=== PATIENT | female | born 1990 | race Asian ===

== ENCOUNTER 2017-03-27 12:30 | Emergency (ER) | payer MEDICAID ==
[~2017-03-27] VITALS: Ht 157.5 cm; Wt 60.8 kg
[2017-03-27 14:41] VITALS: BP 105/55
[2017-03-27] MEDS ORDERED: AMOX500C PO (15:07)
--- NOTE | 2017-03-27 15:07 | PHYS DOC ---
Past Medical History Past Medical History: Hypothyroid Past Surgical History: Other Additional Past Surgical Histo: R hand Alcohol Use: None Drug Use: None Adult General Chief Complaint Chief Complaint: SORE THROAT HPI HPI Patient is a 26 year old female presents to the emergency department with an upper respiratory infection with fevers at night this is been occurring for the last 4 days. Parent is breast-feeding. She is here with her 2 younger children with upper respiratory infections as well. She states that she's been having a sore throat. Denies any nausea vomiting diarrhea or abdominal pain. Review of Systems Review of Systems Constitutional: Denies fever or chills [] Eyes: Denies change in visual acuity, redness, or eye pain [] HENT: Denies nasal congestion C/o sore throat [] Respiratory: Denies cough or shortness of breath [] Cardiovascular: No additional information not addressed in HPI [] GI: Denies abdominal pain, nausea, vomiting, bloody stools or diarrhea [] : Denies dysuria or hematuria [] Musculoskeletal: Denies back pain or joint pain [] Integument: Denies rash or skin lesions [] Neurologic: Denies headache, focal weakness or sensory changes [] Endocrine: Denies polyuria or polydipsia [] Allergies Allergies Allergies Coded Allergies Type Severity Reaction Last Updated Verified No Known Drug Allergies 03/27/17 No Physical Exam Physical Exam Constitutional: Well developed, well nourished, no acute distress, non-toxic appearance. [] HENT: Normocephalic, atraumatic, bilateral external ears normal, oropharynx moist, no oral exudates, nose normal. Bilateral tympanic membranes appear to be normal. Throat appears to be without redness erythematous exudate. No anterior cervical adenopathy noted. Eyes: PERRLA, EOMI, conjunctiva normal, no discharge. [] Neck: Normal range of motion, no tenderness, supple, no stridor. [] Cardiovascular:Heart rate regular rhythm, no murmur [] Lungs & Thorax: Bilateral breath sounds clear to auscultation [][] Skin: Warm, dry, no erythema, no rash. [] Back: No tenderness Extremities: No tenderness, no cyanosis, no clubbing, ROM intact, no edema. [] Neurologic: Alert and oriented X 3, normal motor function, normal sensory function, no focal deficits noted. [] Psychologic: Affect normal, judgement normal, mood normal. [] Current Patient Data Vital Signs Vital Signs Date Time Temp Pulse Resp B/P (MAP) Pulse Ox O2 Delivery O2 Flow Rate FiO2 03/27/17 14:41 98.0 82 18 100 Room Air 98.0 EKG EKG [] Radiology/Procedures Radiology/Procedures [] Course & Med Decision Making Course & Med Decision Making Pertinent Labs and Imaging studies reviewed. (See chart for details) Spoke with grader patrol regards to drinking plenty of fluids such as water, Gatorade, propel, Powerade. Patient will be placed on amoxicillin for upper respiratory infection. Recommended plenty of rest. Signs symptoms to return back to emergency department as been provided. Patient agrees with discharge instructions, treatment regimens and follow-up recommendations. [] Dragon Disclaimer Dragon Disclaimer This electronic medical record was generated, in whole or in part, using a voice recognition dictation system. Departure Departure Impression: Primary Impression: Upper respiratory infection Disposition: HOME, SELF-CARE Condition: STABLE Referrals: UNKNOWN PCP NAME (PCP) Patient Instructions: Upper Respiratory Infection, Adult, [id number] Additional Instructions: Drink plenty of fluids. Tylenol or ibuprofen for fever chills or generalized body aches and discomfort. Medication as prescribed. Follow-up primary care physician next 3-5 days. Return back to emergency prior signs symptoms of become worse. Scripts Amoxicillin (AMOXICILLIN) 500 Mg Capsule 1 CAP PO BID, #20 CAP Prov: GUSTAVO MERINO APRN 03/27/17 GUSTAVO MERINO APRN Mar 27, 2017 15:07
== END 2017-03-27 15:10 | disposition home or self-care (01) ==
LOC: ER 12:30
DX: J06.9 Acute upper respiratory infection, unspecified (principal); E03.9 Hypothyroidism, unspecified
CPT/HCPCS: 99283